=== PATIENT | male | born 1980 | race Caucasian/White ===

== ENCOUNTER 2019-04-08 06:50 | Day surgery (SDC) | payer OTHER, MEDICAID ==
[2019-04-08] MEDS ORDERED: Acetaminophen 500 MG Tab PO ONE (07:45)
[2019-04-08] MEDS ORDERED: Dextrose 5%-Lactated Ringers 1,000 ML IV SCH (08:15)
[2019-04-08] MEDS ORDERED: Meropenem 500 MG in Sodium Chloride 0.9% 50 ML IV ONE (08:30)
[2019-04-08] MEDS ORDERED: fentaNYL 250 MCG/5 ML SDV ONE (08:44)
[2019-04-08] MEDS ORDERED: Glycopyrrolate 0.2 MG/ML 5 ML MDV ONE (08:44)
[2019-04-08] MEDS ORDERED: Neostigmine Methylsulfate 1 MG/ML 5 ML Syringe ONE (08:44)
[2019-04-08] MEDS ORDERED: Ondansetron 4 MG/2 ML SDV ONE (08:44)
[2019-04-08] MEDS ORDERED: Dexamethasone 4 MG/ML SDV ONE (08:44)
[2019-04-08] MEDS ORDERED: Succinylcholine 200 MG/10 ML MDV ONE (08:44)
[2019-04-08] MEDS ORDERED: Propofol 200 MG/20 ML SDV ONE (08:44)
[2019-04-08] MEDS ORDERED: Rocuronium 50 MG/5 ML Vial ONE (08:44)
[2019-04-08] MEDS ORDERED: Bacitracin Oint 1 GM U/D Packet ONE (09:19)
[2019-04-08] MEDS ORDERED: Bupivacaine 0.5%/EPINEPHrine 1:200,000 50 ML MDV ONE (09:19)
[2019-04-08] MEDS ORDERED: fentaNYL 100 MCG/2 ML SDV ONE (09:25)
--- NOTE | 2019-04-10 15:15 | OR ---
DATE OF PROCEDURE: 04/08/2019 SURGEON: Chris Moss MD PREOPERATIVE DIAGNOSIS: Hidradenitis involving perianal, perineal and scrotal areas. POSTOPERATIVE DIAGNOSIS: Hidradenitis involving perianal, perineal and scrotal areas. OPERATIVE PROCEDURES: 1. Excision of hidradenitis suppurativa involving perianal area (02021). 2. Excision of hidradenitis suppurativa involving perineal area (08720). 3. Excision of hidradenitis suppurativa in scrotal area, adjacent to inguinal region (39561). ANESTHESIA: General. INDICATION FOR PROCEDURE: This is a 38-year-old with quite severe hidradenitis suppurativa, presenting with 3 active areas. Two are related to more or less in the perineal area, one is more perianal region, in the low perineal region, and one is more in the central perineum. Then, the patient has one in the scrotal area fairly close to what would be described as the inguinal region. He needs to have each of the these excised. The plan is to proceed with excision, leaving the incisions open for secondary closure. Potential risks including further bleeding, infection, and the possibility of other areas becoming problematic in terms of hidradenitis suppurativa over time were gone over, and the patient wishes to proceed. DETAILS OF PROCEDURE: The patient was taken to the operating room and after general endotracheal anesthesia, he was placed in a frog-legged position. The areas of concern were then prepped and draped. In each case, elliptical incisions were made around the lesion. This was carried down through the skin and subcutaneous tissue and excisional plane was maintained in normal-appearing subcutaneous tissue. The lesions were removed intact. The one in the scrotal region was an open wound, and that makes the culture somewhat problematic in terms of accuracy. The two other perianal and perineal areas, off the field, were incised and cultured to establish some of the baseline bacteria that are involved in these in terms of possible prophylaxis as time goes by. After the dressing was applied, the patient was taken to the recovery room in a satisfactory condition. 0.5% Marcaine was injected around the incision prior to dressing placements. Chris Moss MD /[id number]
== END 2019-04-08 11:25 | disposition home or self-care (01) ==
LOC: JP.SDS 06:50
PROVIDERS: ATTEND Surgery
DX: K61.2 Anorectal abscess (principal); L73.2 Hidradenitis suppurativa; I10 Essential (primary) hypertension; G47.33 Obstructive sleep apnea (adult) (pediatric); K21.9 Gastro-esophageal reflux disease without esophagitis; N40.0 Benign prostatic hyperplasia without lower urinary tract symptoms; F31.9 Bipolar disorder, unspecified; F41.9 Anxiety disorder, unspecified; F17.210 Nicotine dependence, cigarettes, uncomplicated; Z79.82 Long term (current) use of aspirin; Z79.899 Other long term (current) drug therapy; Z88.1 Allergy status to other antibiotic agents; Z88.8 Allergy status to other drugs, medicaments and biological substances
CPT/HCPCS: 11470; 36415; 80053; 83735; 84100; 85027; 87070; 87075; 87205; 88304; A9270; J0330; J1100; J2185; J2405; J2704; J2710; J3010; J3490; J7042; J7050

== ENCOUNTER 2019-06-18 17:17 | Emergency (ER) | payer OTHER, MEDICAID ==
--- NOTE | 2019-06-18 18:32 | EDM.PDOC ---
ED HPI GENERAL MEDICAL PROBLEM - General Chief Complaint: Neuro Symptoms/Deficits Stated Complaint: MEMORY ISSUES Time Seen by Provider: 06/18/19 18:13 Source of Information: Reports: Patient, Family, RN Notes Reviewed History Limitations: Reports: No Limitations - History of Present Illness INITIAL COMMENTS - FREE TEXT/NARRATIVE: 38-year-old gentleman presents to the emergency department today complaint of memory issues, he states that approximately 2-1/2 hours prior he was playing field hockey admits to being short of breath suddenly had numbness and tingling in his fingertips followed by difficulty pronouncing words he felt a words were correct but the sounds he was making was incorrect his brother was with him at the time felt he was not confused would answer questions appropriately but produced inappropriate words. Also felt he had a staggering gait. Example would be trying to say the word hockey pronounces it "tockey" Anterior Frontal Headache Pain Score (Numeric/FACES): 2 - Related Data Allergies Allergy/AdvReac Type Severity Reaction Status Date / Time ceftriaxone Allergy Hives Verified 04/08/19 07:27 clindamycin Allergy Hives Verified 04/08/19 07:27 lisinopril AdvReac Cough Verified 04/08/19 07:38 Home Meds: Home Meds Adalimumab [Humira Pen Crohn's-Uc-Hs] 40 mg SUBCUT Q7D 04/04/19 [History] Doxazosin [Cardura] 8 mg PO DAILY 04/04/19 [History] Ibuprofen [Motrin] 800 mg PO DAILY PRN 04/04/19 [History] Mupirocin Calcium [Mupirocin] 1 applic TOP DAILY 04/04/19 [History] Nystatin 1 applic TOP DAILY PRN 04/04/19 [History] Omeprazole 20 mg PO DAILY 04/04/19 [History] Tadalafil [Cialis] 5 mg PO DAILY PRN 04/04/19 [History] Triamcinolone Acetonide [Kenalog 0.1% Crm] 1 applic TOP DAILY PRN 04/04/19 [ History] ARIPiprazole [Abilify] 5 mg PO DAILY 06/18/19 [History] diazePAM [Valium] 5 mg PO DAILY 06/18/19 [History] Past Medical History Cardiovascular History: Reports: High Cholesterol, Hypertension Respiratory History: Reports: Sleep Apnea, Other (See Below) Other Respiratory History: doesn't require c-pap Gastrointestinal History: Reports: Diverticulosis, GERD, Pancreatitis Genitourinary History: Reports: BPH, Other (See Below) Other Genitourinary History: erectile dysfunction Psychiatric History: Reports: Anxiety, Bipolar, OCD Endocrine/Metabolic History: Reports: Obesity/BMI 30+, Vitamin D Deficiency Dermatologic History: Reports: Other (See Below) Other Dermatologic History: hidradenitis suppuritiva, yeast infection - Infectious Disease History Infectious Disease History: Reports: Chicken Pox - Past Surgical History HEENT Surgical History: Reports: Adenoidectomy, LASIK, Naso-Sinus Surgery, Tonsillectomy, Other (See Below) Other HEENT Surgeries/Procedures: abscess on tonsils, deviated septum surgery GI Surgical History: Reports: Colonoscopy, EGD Male Surgical History: Reports: Vasectomy, Other (See Below) Other Male Surgeries/Procedures: cyst removal in march 2019 Social & Family History - Tobacco Use Smoking Status *Q: Current Every Day Smoker Years of Tobacco use: 26 Packs/Tins Daily: 0.5 - Caffeine Use Caffeine Use: Reports: Coffee - Recreational Drug Use Recreational Drug Use: No ED ROS GENERAL - Review of Systems Review Of Systems: See Below Constitutional: Reports: No Symptoms HEENT: Reports: No Symptoms Respiratory: Reports: Shortness of Breath Cardiovascular: Reports: Dyspnea on Exertion GI/Abdominal: Reports: No Symptoms : Reports: No Symptoms Musculoskeletal: Reports: No Symptoms Skin: Reports: No Symptoms Neurological: Reports: Tingling, Trouble Speaking Psychiatric: Reports: No Symptoms ED EXAM, NEURO - Physical Exam Exam: See Below Text/Narrative:: General: Male, not in any distress, alert and oriented x3 HEENT: head is atraumatic normocephalic, eyes pupils equal round reactive to light, sclera clear no conjunctivitis appreciated, extraocular eye movements intact. Ears tympanic membranes clear and sosa landmarks and light reflex are present bilaterally canals are clear. Nose no septal deviation, nares are clear, no blood present. Mouth mucosa is moist and pink no erythema or exudate noted in soft palate, tongue is midline uvula is midline, dentition is intact. Neck: Supple no thyromegaly no tracheal deviation. Nodes: Cervical nodes subclavicular nodes nontender no palpable lymphadenopathy noted. Lungs: clear to auscultation bilaterally with symmetrical respirations, no adventitious noise appreciated. CV: Regular rate and rhythm S1 and S2 appreciated no murmurs rubs or gallops noted. Abdomen: Soft, nontender, no palpable masses or organomegaly appreciated, no distention no guarding bowel sounds are present, . Neuro: Cranial nerves II test with pupillary light reflex 4 mm to 2 mm bilaterally, CN III test pupillary constriction, lid elevation and eye abduction bilaterally, CN IV downward movement of eyes bilaterally, CN V good jaw movement, CN lateral deviation of the eyes bilaterally to finger movement , CN VII symmetrical smile shows teeth without difficulty, CN VIII pass finger rub to ears bilaterally, CN IX adequate voice and tone, CN X adequate voice and tone no difficulty swallowing, CN XI can shrug shoulders without difficulty, CN XII can stick tongue out without difficulty, cranial nerves II to XII intact as tested, power is 5 out 5 in upper and lower extremities, patellar reflex, biceps reflex +2 can do finger to nose without difficulty, no dysdiadochokinesis , no difficulty with rapid alternating movements can do [id number] without difficulty, Romberg is negative, has adequate gait can do heel to toe, can toe walk and heel walk no cerebellar dysfunction , no focal neurologic deficit Skin: Warm and dry, intact Extremities: No lower extremity edema appreciated Course - Vital Signs Last Recorded V/S: Last Vital Signs Temp 97.3 F 06/18/19 17:31 Pulse 94 06/18/19 17:31 Resp 16 06/18/19 17:31 BP 128/75 06/18/19 17:31 Pulse Ox 95 06/18/19 17:31 - Orders/Labs/Meds Orders: Active Orders 24 hr Category Date Time Status EKG Documentation Completion [RC] ASDIRECTED Care 06/18/19 18:24 Active EKG 12 Lead [EK] Urgent Ther 06/18/19 18:23 Ordered Labs: Laboratory Tests 06/18/19 06/18/19 06/18/19 Range/Units 18:36 18:36 18:36 WBC 12.0 H (4.5-11.0) K/uL RBC 5.51 (4.30-5.90) M/uL Hgb 15.7 H (12.0-15.0) g/dL Hct 46.1 (40.0-54.0) % MCV 84 (80-98) fL MCH 29 (27-31) pg MCHC 34 (32-36) % Plt Count 216 (150-400) K/uL Neut % (Auto) 67 H (36-66) % Lymph % (Auto) 25 (24-44) % Christian % (Auto) 6 (2-6) % Eos % (Auto) 1 L (2-4) % Baso % (Auto) 1 (0-1) % Sodium 137 L (140-148) mmol/L Potassium 3.8 (3.6-5.2) mmol/L Chloride 100 (100-108) mmol/L Carbon Dioxide 25 (21-32) mmol/L Anion Gap 15.8 H (5.0-14.0) mmol/L BUN 11 (7-18) mg/dL Creatinine 1.4 H (0.8-1.3) mg/dL Est Cr Clr Drug Dosing 72.42 mL/min Estimated GFR (MDRD) 56 L (>60) Glucose 91 (74-106) mg/dL Lactic Acid (0.4-2.0) mmol/L Calcium 9.6 (8.5-10.1) mg/dL Total Bilirubin 0.6 (0.2-1.0) mg/dL AST 22 (15-37) U/L ALT 23 (12-78) U/L Alkaline Phosphatase 95 (46-116) U/L Ammonia (11-32) mmol/L CK-MB (CK-2) 0.8 (0-3.6) mg/mL Troponin I 0.026 (0.000-0.056) ng/mL Total Protein 7.5 (6.4-8.2) g/dL Albumin 4.0 (3.4-5.0) g/dL Globulin 3.5 (2.3-3.5) g/dL Albumin/Globulin Ratio 1.1 L (1.2-2.2) 06/18/19 06/18/19 Range/Units 18:36 18:36 WBC (4.5-11.0) K/uL RBC (4.30-5.90) M/uL Hgb (12.0-15.0) g/dL Hct (40.0-54.0) % MCV (80-98) fL MCH (27-31) pg MCHC (32-36) % Plt Count (150-400) K/uL Neut % (Auto) (36-66) % Lymph % (Auto) (24-44) % Christian % (Auto) (2-6) % Eos % (Auto) (2-4) % Baso % (Auto) (0-1) % Sodium (140-148) mmol/L Potassium (3.6-5.2) mmol/L Chloride (100-108) mmol/L Carbon Dioxide (21-32) mmol/L Anion Gap (5.0-14.0) mmol/L BUN (7-18) mg/dL Creatinine (0.8-1.3) mg/dL Est Cr Clr Drug Dosing mL/min Estimated GFR (MDRD) (>60) Glucose (74-106) mg/dL Lactic Acid 1.4 (0.4-2.0) mmol/L Calcium (8.5-10.1) mg/dL Total Bilirubin (0.2-1.0) mg/dL AST (15-37) U/L ALT (12-78) U/L Alkaline Phosphatase (46-116) U/L Ammonia 8 L (11-32) mmol/L CK-MB (CK-2) (0-3.6) mg/mL Troponin I (0.000-0.056) ng/mL Total Protein (6.4-8.2) g/dL Albumin (3.4-5.0) g/dL Globulin (2.3-3.5) g/dL Albumin/Globulin Ratio (1.2-2.2) - Re-Assessments/Exams Free Text/Narrative Re-Assessment/Exam: 06/18/19 20:26 He did have an event of slurred speech in route to the CT scan unfortunately this was not witnessed by any medical staff Departure - Departure Time of Disposition: 20:26 Disposition: Home, Self-Care 01 Condition: Fair Clinical Impression: Difficulty with speech - Discharge Information Referrals: Mary Alarcon PA-C [Primary Care Provider] - Forms: ED Department Discharge Additional Instructions: Continue with your regular medications, Please followup with your primary care provider in 3-5 days if not better, please call return to the emergency department with worsening of symptoms. - My Orders Last 24 Hours: My Active Orders 06/18/19 18:23 EKG 12 Lead [EK] Urgent 06/18/19 18:24 EKG Documentation Completion [RC] ASDIRECTED - Assessment/Plan Last 24 Hours: My Active Orders 06/18/19 18:23 EKG 12 Lead [EK] Urgent 06/18/19 18:24 EKG Documentation Completion [RC] ASDIRECTED Plan: Assessment Acuity = acute Site and laterality = difficulty with speech Etiology = probably related to stress and anxiety Manifestations = none Location of injury = Home Lab values = [WBC elevated 12.0 consistent leukocytosis creatinine elevated 1.4 consistent chronic renal failure stage G IIIa troponin was negative EKG demonstrates a normal sinus rhythm CT scan shows no acute process Plan Called discussed the case Dr. Swift neurology medical receptionist medical assistant at [address] [place] [address] felt this was not consistent with a neurologic deficit, recommending follow-up primary care This note was dictated using [employer] voice recognition software please call with any questions on syntax or grammar.
--- NOTE | 2019-06-18 19:53 | CRLCT ---
INDICATION: Memory issues. TECHNIQUE: CT of the head without contrast. Coronal and sagittal reformats are included. COMPARISON: None. FINDINGS: No acute intracranial hemorrhage or extra-axial collection. No evidence of acute cortical infarction. No mass effect or midline shift. Normal cerebral volume. The ventricles are normal in size, shape and contour. There is normal mercado and white matter differentiation. The orbital contents are normal. Paranasal sinuses are well aerated. Mastoid air cells are clear. No calvarial fractures. No lytic or sclerotic osseous lesions within the calvarium or skull base. Scalp and other imaged soft tissue structures are normal. IMPRESSION: 1. Normal head CT. Please note that all CT scans at this facility use dose modulation, iterative reconstruction, and/or weight-based dosing when appropriate to reduce radiation dose to as low as reasonably achievable. Dictated by Alex Bay MD @ Jun 18 2019 7:48PM Signed by Dr. Alex Bay @ Jun 18 2019 7:51PM
== END 2019-06-18 20:37 | disposition home or self-care (01) ==
LOC: JP.ED 17:17
DX: R47.9 Unspecified speech disturbances (principal); I10 Essential (primary) hypertension; F41.9 Anxiety disorder, unspecified; F31.9 Bipolar disorder, unspecified; E66.9 Obesity, unspecified; F17.210 Nicotine dependence, cigarettes, uncomplicated; Z98.890 Other specified postprocedural states; Z79.899 Other long term (current) drug therapy; Z88.1 Allergy status to other antibiotic agents; Z88.8 Allergy status to other drugs, medicaments and biological substances
CPT/HCPCS: 36415; 70450; 80053; 82140; 82553; 83605; 84484; 85025; 93005; 99283; 99285-25

== ENCOUNTER 2020-06-29 08:38 | Day surgery (SDC) | payer MEDICARE, MEDICAID ==
[~2020-06-29 08:38] MED LIST: Midazolam 1 MG/ML 2 ML SDV ONE; Propofol 200 MG/20 ML SDV ONE; fentaNYL 100 MCG/2 ML SDV ONE
[2020-06-29] MEDS ORDERED: Dextrose 5%-Lactated Ringers 1,000 ML IV SCH (09:15)
--- NOTE | 2020-07-06 14:12 | OR ---
DATE OF PROCEDURE: 06/29/2020 SURGEON: Chris Moss MD PREOPERATIVE DIAGNOSIS: Increasing acid reflux. POSTOPERATIVE DIAGNOSIS: Increasing acid reflux associated with; 1. Small hiatal hernia, but wide-open gastroesophageal junction with active gastroesophageal reflux disease. 2. Diffuse gastritis and proximal duodenitis. OPERATIVE PROCEDURE: Esophagogastroduodenoscopy with; 1. Biopsy of esophagogastric junction for histologic evaluation. 2. Biopsies of antrum for CLOtest. ANESTHESIA: IV sedation. INDICATION FOR PROCEDURE: This is a 39-year-old male presenting with some increasing problems with reflux and presently has been on omeprazole 20 mg a day over the last 5 years or so. In the last 2 weeks, he started taking some of his 's Protonix 40 mg, does note some improvement of those symptoms, but still having quite active reflux. Plan is to proceed with upper GI endoscopy with biopsies and/or dilation as indicated. Potential risks including bleeding and perforation were discussed, and the patient wishes to proceed. DETAILS OF PROCEDURE: The patient was taken to the operating room and placed in a left lateral decubitus position. IV sedation was administered, after which the upper GI endoscope was passed orally through the length of the esophagus and stomach with retroflexion view of the fundus, thereafter through the pyloric channel into the junction of the third and fourth portions of the duodenum. Findings included normal hypopharynx, larynx, upper esophageal sphincter, and esophageal body. At the EG junction, the patient had a small hiatal hernia, but it had essentially no barrier between the stomach and the esophagus as that area was clearly wide-open. This was associated with quite active gastroesophageal reflux disease. 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 No erosions, ulcers, or plaquing were noted. In the stomach, there was more or less diffuse gastritis with the stomach being diffusely somewhat reddened and edematous. No ulcers or erosions were seen. This inflammatory mucosal pattern extended to lesser extent into the duodenal bulb, beyond which the findings normalized in the remainder of the duodenum. At this point, biopsies obtained from the antrum and sent for CLOtest and H pylori. Multiple biopsies were obtained from esophagogastric junction and sent for histologic evaluation. Minimal bleeding from the biopsy sites was seen and the procedure was then concluded. We will have the patient continue on the Protonix 40 mg a day and a new prescription for that is written. I will see him back on 07/15 to see how he is doing with that medical regimen. At his age, if medical management is not sufficient, then consideration of a Jim fundoplication may be warranted. Chris Moss MD /[id number]
== END 2020-06-29 12:21 | disposition home or self-care (01) ==
LOC: JP.SDS 08:38
PROVIDERS: ATTEND Surgery
DX: K29.50 Unspecified chronic gastritis without bleeding (principal); K44.9 Diaphragmatic hernia without obstruction or gangrene; K29.80 Duodenitis without bleeding; K21.0 Gastro-esophageal reflux disease with esophagitis; E78.5 Hyperlipidemia, unspecified; F17.200 Nicotine dependence, unspecified, uncomplicated; G47.33 Obstructive sleep apnea (adult) (pediatric); F31.9 Bipolar disorder, unspecified; Z79.899 Other long term (current) drug therapy
CPT/HCPCS: 43239; 87081; 88305; J2250; J2704; J3010; J7121

== ENCOUNTER 2024-09-10 08:21 | Day surgery (SDC) | payer MEDICAID, MEDICARE ==
[2024-09-10] MEDS: Sodium Chloride 0.9% 1,000 ML IV SCH (09:09)
[2024-09-10] MEDS ORDERED: fentaNYL 100 MCG/2 ML SDV ONE (09:42)
[2024-09-10] MEDS ORDERED: Midazolam 1 MG/ML 2 ML SDV ONE (09:42)
[2024-09-10] MEDS ORDERED: Propofol 200 MG/20 ML SDV ONE ×2 (09:42→10:08)
== END 2024-09-10 11:30 | disposition home or self-care (01) ==
LOC: JP.SDS 08:21
PROVIDERS: ATTEND Surgery
DX: Z12.11 Encounter for screening for malignant neoplasm of colon (principal); K21.9 Gastro-esophageal reflux disease without esophagitis
CPT/HCPCS: G0121; J2250; J2704; J3010; J7030; 00811-QZ